=== PATIENT | male | born 1930 | race Caucasian/White ===

== ENCOUNTER 2017-07-18 14:26 | Inpatient (IN) | payer MEDICARE ==
[~2017-07-18] VITALS: Ht 170.2 cm; Wt 76.1 kg
[2017-07-18] VITALS (10 sets, daily range): BP systolic 100–157; BP diastolic 57–101; PULSE 79–95; RESP 16–24; TEMP 97.7; O2SAT 93–97
--- NOTE | 2017-07-18 14:42 | PD ---
HPI Chief Complaint: Respiratory Symptoms Time Seen by Provider: 14:39 Travel History International Travel<30 days: No Contact w/Intl Traveler<30days: No Traveled to known affect area: No History of Present Illness HPI Progressively worsening shortness of breath over the past 2-3 days. Shortness of breath is worsened by laying flat. Increasing lower extremity edema as well has been noted. 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 However the patient denies having any history of liver failure kidney failure or congestive heart failure Patient has a history of lung CA with known pneumonectomy 2 on right lung No known drug allergies History of PVCs, history of COPD, history of cholecystectomy, history of hiatal hernia, and history of anxiety. PFSH Past Medical History Respiratory: Yes Social History Tobacco Use: No Allergies-Medications (Allergen,Severity, Reaction): Coded Allergies: No Known Allergies (Unverified , 07/18/17) Reported Meds & Prescriptions Reported Meds & Active Scripts Active Reported [inhaler] Prednisone 10 Mg Tab 10 Mg PO DAILY [water pill] [breathing tx] 1 Inh QID PRN Review of Systems General / Constitutional: No: Fever Eyes: No: Visual changes HENT: No: Headaches Cardiovascular: No: Chest Pain or Discomfort Respiratory: Positive: Shortness of Breath Gastrointestinal: No: Abdominal Pain Genitourinary: No: Dysuria Musculoskeletal: No: Pain Skin: No Rash Neurologic: No: Weakness Psychiatric: No: Depression Endocrine: No: Polydipsia Hematologic/Lymphatic: No: Easy Bruising Physical Exam Narrative GENERAL: SKIN: Warm and dry. HEAD: Atraumatic. Normocephalic. EYES: Pupils equal and round. No scleral icterus. No injection or drainage. ENT: No nasal bleeding or discharge. Mucous membranes pink and moist. NECK: Trachea midline. No JVD. CARDIOVASCULAR: Regular rate and rhythm. RESPIRATORY: No accessory muscle use. Clear to auscultation. Breath sounds equal bilaterally. GASTROINTESTINAL: Abdomen soft, non-tender, nondistended. MUSCULOSKELETAL: Extremities without clubbing, cyanosis, or edema. No obvious deformities. NEUROLOGICAL: Awake and alert. No obvious cranial nerve deficits. Motor grossly within normal limits. Five out of 5 muscle strength in the arms and legs. Normal speech. PSYCHIATRIC: Appropriate mood and affect; insight and judgment normal. Data Data Last Documented VS Orders Orders Complete Blood Count With Diff (07/18/17 14:40) Comprehensive Metabolic Panel (07/18/17 14:40) B-Type Natriuretic Peptide (07/18/17 14:40) D-Dimer (07/18/17 14:40) Act Partial Throm Time (Ptt) (07/18/17 14:40) Prothrombin Time / Inr (Pt) (07/18/17 14:40) Ckmb (Isoenzyme) Profile (07/18/17 14:40) Troponin I (07/18/17 14:40) Influenzae A/B Antigen (07/18/17 14:40) Blood Culture (07/18/17 14:40) Iv Access Insert/Monitor (07/18/17 14:40) Electrocardiogram (07/18/17 14:40) Ecg Monitoring (07/18/17 14:40) Oximetry (07/18/17 14:40) Oxygen Administration (07/18/17 14:40) Chest, Single Ap (07/18/17 14:40) Sodium Chloride 0.9% Flush (Ns Flush) (07/18/17 14:45) Methylprednisolone So Succ Inj (Solumedr (07/18/17 14:45) Albuterol Neb (Albuterol Neb) (07/18/17 14:45) Nitroglycerin 2% Oint (Nitroglycerin 2% (07/18/17 15:15) Furosemide Inj (Lasix Inj) (07/18/17 15:15) Oseltamivir (Tamiflu) (07/18/17 15:45) Admit Order (Ed Use Only) (07/18/17 15:56) Labs Laboratory Tests Test 07/18/17 15:00 White Blood Count 7.1 TH/MM3 Red Blood Count 5.08 MIL/MM3 Hemoglobin 14.1 GM/DL Hematocrit 44.3 % Mean Corpuscular Volume 87.1 FL Mean Corpuscular Hemoglobin 27.7 PG Mean Corpuscular Hemoglobin Concent 31.8 % Red Cell Distribution Width 15.8 % Platelet Count 199 TH/MM3 Mean Platelet Volume 8.2 FL Neutrophils (%) (Auto) 89.1 % Lymphocytes (%) (Auto) 7.0 % Monocytes (%) (Auto) 3.4 % Eosinophils (%) (Auto) 0.3 % Basophils (%) (Auto) 0.2 % Neutrophils # (Auto) 6.4 TH/MM3 Lymphocytes # (Auto) 0.5 TH/MM3 Monocytes # (Auto) 0.2 TH/MM3 Eosinophils # (Auto) 0.0 TH/MM3 Basophils # (Auto) 0.0 TH/MM3 CBC Comment DIFF FINAL Differential Comment Prothrombin Time 11.4 SEC Prothromb Time International Ratio 1.1 RATIO Activated Partial Thromboplast Time 25.3 SEC D-Dimer Quantitative (PE/DVT) 1.24 MG/L FEU Blood Urea Nitrogen 30 MG/DL Creatinine 1.10 MG/DL Random Glucose 97 MG/DL Total Protein 6.8 GM/DL Albumin 3.3 GM/DL Calcium Level 8.9 MG/DL Alkaline Phosphatase 93 U/L Aspartate Amino Transf (AST/SGOT) 52 U/L Alanine Aminotransferase (ALT/SGPT) 93 U/L Total Bilirubin 0.7 MG/DL Sodium Level 138 MEQ/L Potassium Level 4.4 MEQ/L Chloride Level 103 MEQ/L Carbon Dioxide Level 26.8 MEQ/L Anion Gap 8 MEQ/L Estimat Glomerular Filtration Rate 64 ML/MIN Total Creatine Kinase 57 U/L Troponin I 0.07 NG/ML B-Type Natriuretic Peptide 2023 PG/ML MDM Medical Decision Making Medical Screen Exam Complete: Yes Emergency Medical Condition: Yes Medical Record Reviewed: Yes Interpretation(s) EKG shows normal sinus rhythm, 92 bpm, PVCs, nonspecific ST-T wave changes, no specific STEMI pattern noted Differential Diagnosis COPD exacerbation versus pneumonia versus CHF versus pulmonary edema versus pleural effusion Narrative Course CBC shows no leukocytosis, no anemia, normal platelet count. Chemistry profile shows normal electrolytes, mildly elevated AST of 52 ALT of 93 , normal bilirubin normal alk phos. Flu positive Chest x-ray read by radiologist as mild congestive heart failure. Diagnosis Primary Impression: Dyspnea Qualified Codes: R06.01 - Orthopnea Additional Impressions: Pulmonary edema Influenza Admitting Information Admitting Physician Requests: Observation Scripts [Albuterol-Ipratropium Neb] 1 AMPULE NEBU No Conflict Check 1 AMPULE NEB Q2HR NEB Y for SOB/WHEEZING, #90 Prov: Shawanda Dee MD 07/19/17 Furosemide (Lasix) 20 Mg Tab 20 MG PO BID for heart, #60 TAB 0 Refills Prov: Shawanda Dee MD 07/19/[address] (Aspirin EC) 325 Mg Tabdr 325 MG PO DAILY for heart, #31 TAB Prov: Shawanda Dee MD 07/19/17 Lisinopril (Lisinopril) 5 Mg Tab 2.5 MG PO DAILY for hf, #30 TAB Prov: Shawanda Dee MD 07/19/17 Carvedilol (Coreg) 3.125 Mg Tab 3.125 MG PO Q12HR for hf, #62 TAB Prov: Shawanda Dee MD 07/19/17 Oseltamivir (Tamiflu) 75 Mg Cap 75 MG PO BID for Infection, #8 CAP Prov: Shawanda Dee MD 07/19/17 Luis Stokes MD Jul 18, 2017 14:42
[2017-07-18] MEDS ORDERED: SODIUM CHLORIDE 0.9% FLUSH 10 ML FLUSH IVF PRN (14:45)
[2017-07-18] MEDS ORDERED: methylPREDNISolone SOD SUCC 125 MG/2 ML VIAL IV PUSH ONE (14:45)
[2017-07-18] MEDS: RESP: ALBUTEROL 2.5 MG/3 ML NEB (SCH) INH (14:49)
--- NOTE | 2017-07-18 15:02 | RADRPT ---
EXAM DATE/TIME: 07/18/2017 14:41 [facility] COMPARISON: No previous studies available for comparison. INDICATIONS : Short of breath MEDICAL HISTORY : None. SURGICAL HISTORY : None. ENCOUNTER: Initial ACUITY: 1 day PAIN SCORE: 0/10 LOCATION: Bilateral chest FINDINGS: There is elevation of the right hemidiaphragm. Minimal parenchymal changes left base. Cardiomegaly with mild interstitial edema. Postsurgical changes about the right hilum. No pneumothorax. The port ion of the bony skeleton visualized is unremarkable. CONCLUSION: Probable mild congestive failure. El Madison MD FACR on July 18, 2017 at 14:59 Board Certified Radiologist. This report was verified electronically.
[2017-07-18] MEDS ORDERED: FUROSEMIDE 40 MG/4 ML VIAL IV PUSH ONE (15:15)
[2017-07-18] MEDS ORDERED: NITROGLYCERIN 2% OINT 1 GM PACKET TOP ONE (15:15)
[2017-07-18 15:19] LABS: AUTOMATED NEUTROPHIL # 6.4 TH/MM3 (1.8-7.7); BASOPHIL % 0.2 % (0.0-2.0); EOSINOPHIL % 0.3 % (0.0-4.0); HEMATOCRIT 44.3 % (39.0-51.0); HEMOGLOBIN 14.1 GM/DL (13.0-17.0); LYMPHOCYTE # 0.5 TH/MM3 (1.0-4.8); MEAN CELL VOLUME 87.1 FL (80.0-100.0); MEAN CORPUSCULAR HEMOGLOBIN 27.7 PG (27.0-34.0); MEAN CORPUSCULAR HGB CONC 31.8 % (32.0-36.0); MEAN PLATELET VOLUME 8.2 FL (7.0-11.0); MONO % 3.4 % (0.0-8.0); MONOCYTE # 0.2 TH/MM3 (0-0.9); NEUT % 89.1 % (16.0-70.0); PLATELET COUNT 199 TH/MM3 (150-450); RED BLOOD COUNT 5.08 MIL/MM3 (4.50-5.90); RED CELL DISTRIBUTION WIDTH 15.8 % (11.6-17.2); WHITE BLOOD COUNT 7.1 TH/MM3 (4.0-11.0)
[2017-07-18] MEDS ORDERED: breathing tx (15:24)
[2017-07-18] MEDS ORDERED: inhaler (15:24)
[2017-07-18] MEDS ORDERED: PRED10 PO (15:24)
[2017-07-18] MEDS ORDERED: water pill (15:24)
[2017-07-18 15:25] LABS: CHLORIDE 103 MEQ/L (98-107); SODIUM (NA) 138 MEQ/L (136-145)
[2017-07-18 15:28] LABS: CALCIUM 8.9 MG/DL (8.5-10.1)
[2017-07-18 15:29] LABS: ALBUMIN 3.3 GM/DL (3.4-5.0); BICARBONATE 26.8 MEQ/L (21.0-32.0); BLOOD UREA NITROGEN 30 MG/DL (7-18); GLUCOSE,RANDOM 97 MG/DL (74-106)
[2017-07-18 15:31] LABS: INTERNATIONAL NORMALIZED RATIO 1.1 RATIO; PROTHROMBIN TIME - PATIENT 11.4 SEC (9.8-11.6)
[2017-07-18 15:32] LABS: ALT (GPT) 93 U/L (12-78); AST (GOT) 52 U/L (15-37); GLOMERULAR FILTRATION RATE 64 ML/MIN (>89)
[2017-07-18 15:33] LABS: TOTAL BILIRUBIN ADULT 0.7 MG/DL (0.2-1.0); TOTAL PROTEIN 6.8 GM/DL (6.4-8.2)
[2017-07-18 15:35] LABS: ALKALINE PHOSPHATASE 93 U/L (45-117)
[2017-07-18 15:37] LABS: TROPONIN I 0.07 NG/ML (0.02-0.05)
[2017-07-18 15:42] LABS: D-DIMER 1.24 MG/L FEU (0.00-0.50)
[2017-07-18] MEDS ORDERED: OSELTAMIVIR PHOSPHATE 75 MG CAP PO ONE (15:45)
[2017-07-18] MEDS ORDERED: TEMAZEPAM 15 MG CAP PO PRN (16:15)
[2017-07-18] MEDS ORDERED: DOCUSATE SODIUM 100 MG CAP PO PRN (16:15)
[2017-07-18] MEDS ORDERED: MAGNESIUM HYDROXIDE SUSP 30 ML CUP PO PRN (16:15)
[2017-07-18] MEDS ORDERED: CALCIUM CARBONATE 500 MG CHEWABLE TAB CHEW PRN (16:15)
[2017-07-18] MEDS ORDERED: ONDANSETRON HCL 4 MG/2 ML VIAL IV PUSH PRN (16:15)
[2017-07-18] MEDS ORDERED: RESP: ALBUTEROL 2.5 MG/IPRATROPIUM 0.5 MG NEB (PRN) NEB (16:15)
[2017-07-18] MEDS ORDERED: SODIUM CHLORIDE 0.9% FLUSH 10 ML FLUSH IV FLUSH PRN (16:15)
[2017-07-18] MEDS ORDERED: ACETAMINOPHEN 325 MG TAB PO PRN (16:15)
[2017-07-18] MEDS ORDERED: PILL SPLITTER OTHER PRN (16:45)
[2017-07-18] MEDS: LISINOPRIL 5 MG TAB PO SCH (16:55)
[2017-07-18] MEDS: ASPIRIN EC 325 MG TABEC PO SCH (16:55)
--- NOTE | 2017-07-18 17:07 | HHI.HP ---
[facility] Unknown Admission Diagnosis INFLUENZA, PULMONARY EDEMA, PVC'S Diagnoses: Chief Complaint: Shortness of breath Travel History International Travel<30 Days: No Contact w/Intl Traveler <30 Da: No Traveled to Known Affected Are: No History of Present Illness This patient is a very pleasant 87-year-old gentleman with a history of COPD. He endorses 2-3 days of increased dyspnea on exertion and shortness of breath. Recently he was prescribed oxygen and his primary doctor locally if he has a history of COPD. Patient does not have a history of cardiac disease. He has never had a cardiac event and has come in complaining of orthopnea and lower extremity edema. Take a water pill occasionally, but reports that this is just as needed for increased edema. Here he is given Lasix and put out 600 mL. His BNP is elevated his cardiac enzymes are slightly elevated and he does have the flu. Patient been admitted to the hospital due to signs and symptoms of congestive heart failure. I did review his EKG and there are no changes consistent with ST elevation OK or ischemia. He is in normal sinus rhythm at this time Review of Systems Constitutional: DENIES: Diaphoretic episodes, Fatigue, Fever, Weight gain, Weight loss, Chills, Dizziness, Change in appetite, Night Sweats Endocrine: DENIES: Heat/cold intolerance, Polydipsia, Polyuria, Polyphagia Eyes: DENIES: Blurred vision, Diplopia, Eye inflammation, Eye pain, Vision loss , Photosensitivity, Double Vision Ears, nose, mouth, throat: DENIES: Tinnitus, Hearing loss, Vertigo, Nasal discharge, Oral lesions, Throat pain, Hoarseness, Ear Pain, Running Nose, Epistaxis, Sinus Pain, Toothache, Odynophagia Respiratory: DENIES: Apneas, Cough, Snoring, Wheezing, Hemoptysis, Sputum production, Shortness of breath Cardiovascular: COMPLAINS OF: Dyspnea on Exertion, Lower Extremity Edema, Orthopnea, DENIES: Chest pain, Palpitations, Syncope, PND, Claudication Genitourinary: DENIES: Sexual dysfunction, Urinary frequency, Urinary incontinence, Urgency, Hematuria, Dysuria, Nocturia, Penile Discharge, Testicular Pain, Testicular Swelling Musculoskeletal: DENIES: Joint pain, Muscle aches, Stiffness, Joint Swelling, Back pain, Neck pain Integumentary: DENIES: Abnormal pigmentation, Nail changes, Pruritus, Rash Hematologic/lymphatic: DENIES: Bruising, Lymphadenopathy Immunologic/allergic: DENIES: Eczema, Urticaria Neurologic: DENIES: Abnormal gait, Headache, Localized weakness, Paresthesias, Seizures, Speech Problems, Tremor, Poor Balance Psychiatric: DENIES: Anxiety, Confusion, Mood changes, Depression, Hallucinations, Agitation, Suicidal Ideation, Homicidal Ideation, Delusions Past Family Social History Past Medical History COPD Lung cancer with lung surgeries 2 Edema Past Surgical History Lung surgery 2 Cholecystectomy Hiatal hernia Reported Medications Reviewed in the EMR, nothing new, take the water pill occasionally as needed for ankle edema Allergies: Coded Allergies: No Known Allergies (Unverified , 07/18/17) Active Ordered Medications Reviewed in the EMR Family History Family history is unknown per patient Social History No current tobacco alcohol dependency, is visiting from [place] with his family Physical Exam Vital Signs Vital Signs Date Time Temp Pulse Resp B/P (MAP) Pulse Ox O2 Delivery O2 Flow Rate FiO2 07/18/17 16:47 95 20 149/82 (104) 95 Nasal Cannula 2.00 07/18/17 15:45 93 20 157/87 (110) 93 Nasal Cannula 2.00 07/18/17 14:52 96 Nasal Cannula 2.00 07/18/17 14:52 96 Nasal Cannula 2.00 07/18/17 14:52 Nasal Cannula 07/18/17 14:49 95 Nasal Cannula 2.00 07/18/17 14:28 97.7 93 20 149/101 (117) 95 Physical Exam GENERAL: This is a well-nourished, well-developed patient, in no apparent distress. SKIN: No rashes, ecchymoses or lesions. Cool and dry. HEAD: Atraumatic. Normocephalic. No temporal or scalp tenderness. EYES: Pupils equal round and reactive. Extraocular motions intact. No scleral icterus. No injection or drainage. ENT: Nose without bleeding, purulent drainage or septal hematoma. Throat without erythema, tonsillar hypertrophy or exudate. Uvula midline. Airway patent. NECK: Trachea midline. No JVD or lymphadenopathy. Supple, nontender, no meningeal signs. CARDIOVASCULAR: Regular rate and rhythm without murmurs, gallops, or rubs. RESPIRATORY: Decreased airflow bilaterally with crackles in the bases GASTROINTESTINAL: Abdomen soft, non-tender, nondistended. No hepato-splenomegaly , or palpable masses. No guarding. MUSCULOSKELETAL: Extremities without clubbing, cyanosis, or edema. No joint tenderness, effusion, but there is +3 edema bilateral ankles. No calf tenderness. Negative Homans sign bilaterally. NEUROLOGICAL: Awake and alert. Cranial nerves II through XII intact. Motor and sensory grossly within normal limits. Five out of 5 muscle strength in all muscle groups. Normal speech. Laboratory Laboratory Tests Test 07/18/17 15:00 White Blood Count 7.1 Red Blood Count 5.08 Hemoglobin 14.1 Hematocrit 44.3 Mean Corpuscular Volume 87.1 Mean Corpuscular Hemoglobin 27.7 Mean Corpuscular Hemoglobin Concent 31.8 Red Cell Distribution Width 15.8 Platelet Count 199 Mean Platelet Volume 8.2 Neutrophils (%) (Auto) 89.1 Lymphocytes (%) (Auto) 7.0 Monocytes (%) (Auto) 3.4 Eosinophils (%) (Auto) 0.3 Basophils (%) (Auto) 0.2 Neutrophils # (Auto) 6.4 Lymphocytes # (Auto) 0.5 Monocytes # (Auto) 0.2 Eosinophils # (Auto) 0.0 Basophils # (Auto) 0.0 CBC Comment DIFF FINAL Differential Comment Prothrombin Time 11.4 Prothromb Time International Ratio 1.1 Activated Partial Thromboplast Time 25.3 D-Dimer Quantitative (PE/DVT) 1.24 Blood Urea Nitrogen 30 Creatinine 1.10 Random Glucose 97 Total Protein 6.8 Albumin 3.3 Calcium Level 8.9 Alkaline Phosphatase 93 Aspartate Amino Transf (AST/SGOT) 52 Alanine Aminotransferase (ALT/SGPT) 93 Total Bilirubin 0.7 Sodium Level 138 Potassium Level 4.4 Chloride Level 103 Carbon Dioxide Level 26.8 Anion Gap 8 Estimat Glomerular Filtration Rate 64 Total Creatine Kinase 57 Troponin I 0.07 B-Type Natriuretic Peptide 2022 Date/Time Source Procedure Growth Status 07/18/17 15:00 Blood Peripheral Aerobic Blood Culture Pending Received 07/18/17 15:00 Blood Peripheral Anaerobic Blood Culture Pending Received 07/18/17 14:55 Nasal Washing Influenza Types A,B Antigen (MUSA) - Final Positive For Flu A Antigen Complete Result Diagram: 07/18/17 1500 07/18/17 1500 Imaging Last Impressions Chest X-Ray 07/18/17 1440 Signed Impressions: Service Date/Time: Tuesday, July 18, 2017 14:41 - CONCLUSION: Probable mild congestive failure. El Madison MD FACR Karely VTE Risk Assessment Karely VTE Risk Assessment: No/Low Risk (score <= 1) Caprini Risk Assessment Model Point Value = 1 Point Value = 2 Point Value = 3 Point Value = 5 Age 41-60 Minor surgery BMI > 25 kg/m2 Swollen legs Varicose veins or History of unexplained or recurrent spontaneous Oral contraceptives or hormone replacement Sepsis (< 1 month) Serious lung disease, including pneumonia (< 1 month) Abnormal pulmonary function Acute myocardial infarction Congestive heart failure (< 1 month) History of inflammatory bowel disease Medical patient at bed rest Age 61-74 Arthroscopic surgery Major open surgery (> 45 min) Laparoscopic surgery (> 45 min) Malignancy Confined to bed (> 72 hours) Immobilizing plaster cast Central venous access Age >= 75 History of VTE Family history of VTE Factor V Leiden Prothrombin [id number] Lupus anticoagulant Anticardiolipin antibodies Elevated serum homocysteine Heparin-induced thrombocytopenia Other congenital or acquired thrombophilia Stroke (< 1 month) Elective arthroplasty Hip, pelvis, or leg fracture Acute spinal cord injury (< 1 month) Prophylaxis Regimen Total Risk Factor Score Risk Level Prophylaxis Regimen 0-1 Low Early ambulation 2 Moderate Order ONE of the following: *Sequential Compression Device (SCD) *Heparin 5000 units SQ BID 3-4 Higher Order ONE of the following medications: *Heparin 5000 units SQ TID *Enoxaparin/Lovenox 40 mg SQ daily (WT < 150 kg, CrCl > 30 mL/min) *Enoxaparin/Lovenox 30 mg SQ daily (WT < 150 kg, CrCl > 10-29 mL/min) *Enoxaparin/Lovenox 30 mg SQ BID (WT < 150 kg, CrCl > 30 mL/min) AND/OR *Sequential Compression Device (SCD) 5 or more Highest Order ONE of the following medications: *Heparin 5000 units SQ TID (Preferred with Epidurals) *Enoxaparin/Lovenox 40 mg SQ daily (WT < 150 kg, CrCl > 30 mL/min) *Enoxaparin/Lovenox 30 mg SQ daily (WT < 150 kg, CrCl > 10-29 mL/min) *Enoxaparin/Lovenox 30 mg SQ BID (WT < 150 kg, CrCl > 30 mL/min) AND *Sequential Compression Device (SCD) Assessment and Plan Problem List: (1) CHF (congestive heart failure) ICD Code: I50.9 - Heart failure, unspecified Plan: New onset per patient, echocardiogram pending and cardiac enzymes will be trended Continue with telemetry Continue with medical management Elevated LFTs likely from passive congestion (2) Influenza A ICD Code: J10.1 - Influenza due to other identified influenza virus with other respiratory manifestations Plan: Continue Tamiflu and supportive care (3) Elevated troponin ICD Code: R74.8 - Abnormal levels of other serum enzymes Plan: Likely due to congestive heart failure exacerbation, workup in progress Cardiology to see (4) COPD (chronic obstructive pulmonary disease) ICD Code: J44.9 - Chronic obstructive pulmonary disease, unspecified Plan: Continue with bronchodilators scheduled and as needed (5) D-dimer, elevated ICD Code: R79.89 - Other specified abnormal findings of blood chemistry Plan: Patient will need further evaluation for PE Given that the patient will likely also need probably a stress test evaluated by CT Physician Certification 2 Midnight Certification Type: Admission for Inpatient Services Order for Inpatient Services The services are ordered in accordance with Medicare regulations or non- Medicare payer requirements, as applicable. In the case of services not specified as inpatient-only, they are appropriately provided as inpatient services in accordance with the 2-midnight benchmark. Estimated LOS (days): 3 3 days is the estimated time the patient will need to remain in the hospital, assuming treatment plan goals are met and no additional complications. Post-Hospital Plan: Shawanda Georges MD Jul 18, 2017 17:07
[2017-07-18] MEDS ORDERED: NITROGLYCERIN 2% OINT 1 GM PACKET TOPICAL SCH (18:00)
[2017-07-18] MEDS: ENOXAPARIN SODIUM 80 MG/0.8 ML SYRINGE SQ SCH (18:44)
[2017-07-18] MEDS: RESP: ALBUTEROL 2.5 MG/IPRATROPIUM 0.5 MG NEB (SCH) NEB (19:07)
[2017-07-18] MEDS: OSELTAMIVIR PHOSPHATE 75 MG CAP PO SCH (21:00)
[2017-07-18] MEDS: POTASSIUM CHLORIDE 10 MEQ CONTROLLED RELEASE TAB PO SCH (21:39)
[2017-07-18] MEDS: CARVEDILOL 3.125 MG TAB PO SCH (21:39)
[2017-07-18] MEDS: SODIUM CHLORIDE 0.9% FLUSH 10 ML FLUSH IV FLUSH SCH (21:39)
[2017-07-19] VITALS (17 sets, daily range): BP systolic 104–139; BP diastolic 58–87; PULSE 59–86; RESP 18–20; TEMP 96.5–97.8; O2SAT 95–100
[2017-07-19] MEDS ORDERED: IOHEXOL 350 MG/ML 10 ML VIAL (for RAD DIAG) IVCONTRAST ONE (00:16)
--- NOTE | 2017-07-19 00:32 | RADRPT ---
EXAM DATE/TIME: 07/19/2017 00:04 [facility] COMPARISON: CHEST SINGLE AP, July 18, 2017, 14:41. INDICATIONS : Shortness of breath. IV CONTRAST: 75 cc Omnipaque 350 (iohexol) IV RADIATION DOSE: 18.47 CTDIvol (mGy) MEDICAL HISTORY : Cardiovascular disease. Chronic obstructive pulmonary disease. SURGICAL HISTORY : Lobectomy. Cholecystectomy.Hiatal hernia repair. ENCOUNTER: Initial ACUITY: 3 days PAIN SCALE: 6/10 LOCATION: chest TECHNIQUE: Volumetric scanning of the chest was performed using a pulmonary embolism protocol MIP images were re constructed. Using automated exposure control and adjustment of the mA and/or kV according to patien t size, radiation dose was kept as low as reasonably achievable to obtain optimal diagnostic quality images. DICOM format image data is available electronically for review and comparison. Follow-up recommendations for detected pulmonary nodules are based at a minimum on nodule size and pa tient risk factors according to Fleischner Society Guidelines. FINDINGS: PULMONARY ARTERIES: There is a solitary filling defect in a subsegmental artery supplying the anterior right upper lung. There is thickening about the segmental artery and there are multiple areas of lobular opacity in th e anterior right upper lobe. This portion of the lung is presumably at the site of prior lobectomy. The remainder of the pulmonary arteries including the main, left, and right pulmonary arteries are p atent without filling defects. LUNGS: Multiple lobular irregular margin nodules are present in the right upper lung and there is consolidat jose thickening in the anterior right apex. Patient has history of lobectomy and these opacities are located adjacent to the presumed site of lobectomy. These could represent metastatic nodules. PLEURAE: Moderate-sized left pleural effusion measuring 4.3 cm and small right pleural effusion measuring 1.5 cm. MEDIASTINUM: There is good visualization of the great vessels of the middle mediastinum. No evidence of mediastin al or hilar adenopathy/mass. CONCLUSION: 1. 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 There is an abnormal appearance to the right upper lobe with multiple lobular opacities which appear to follow a vascular distribution. Th ere is also a solitary filling defect in a subsegmental artery supplying this region. Recommend emigdio elation with prior history to confirm that this is in the portion of the lung and has had lobectomy a nd for possible radiation. If there is a history of lung cancer, metastatic disease could cause this appearance. There are no prior chest imaging studies at this institution to evaluate whether these densities are new or not. 2. No filling defects seen in the remainder of the pulmonary arteries. 3. Bilateral pleural effusions, left greater than right. Parag Pierre MD on July 19, 2017 at 0:22 Board Certified Radiologist. This report was verified electronically.
[2017-07-19] MEDS: FUROSEMIDE 40 MG/4 ML VIAL IVP SCH ×2 (00:46→09:00)
[2017-07-19] MEDS: NITROGLYCERIN 2% OINT 1 GM PACKET TOPICAL SCH ×3 (00:46→12:10)
[2017-07-19 04:06] LABS: CHLORIDE 100 MEQ/L (98-107); SODIUM (NA) 139 MEQ/L (136-145)
[2017-07-19 04:09] LABS: CALCIUM 8.6 MG/DL (8.5-10.1)
[2017-07-19 04:10] LABS: BICARBONATE 31.5 MEQ/L (21.0-32.0); BLOOD UREA NITROGEN 29 MG/DL (7-18); GLUCOSE,RANDOM 123 MG/DL (74-106)
[2017-07-19 04:13] LABS: ALT (GPT) 99 U/L (12-78); AST (GOT) 53 U/L (15-37); GLOMERULAR FILTRATION RATE 58 ML/MIN (>89)
[2017-07-19 04:14] LABS: TOTAL BILIRUBIN ADULT 0.6 MG/DL (0.2-1.0); TOTAL PROTEIN 6.3 GM/DL (6.4-8.2)
[2017-07-19 04:16] LABS: ALKALINE PHOSPHATASE 88 U/L (45-117)
[2017-07-19 04:18] LABS: TROPONIN I 0.04 NG/ML (0.02-0.05)
[2017-07-19] MEDS: ENOXAPARIN SODIUM 80 MG/0.8 ML SYRINGE SQ SCH (06:37)
[2017-07-19] MEDS: RESP: ALBUTEROL 2.5 MG/IPRATROPIUM 0.5 MG NEB (SCH) NEB ×2 (08:59→13:23)
[2017-07-19] MEDS: SODIUM CHLORIDE 0.9% FLUSH 10 ML FLUSH IV FLUSH SCH (09:00)
[2017-07-19] MEDS: ASPIRIN EC 325 MG TABEC PO SCH (09:00)
[2017-07-19] MEDS: POTASSIUM CHLORIDE 10 MEQ CONTROLLED RELEASE TAB PO SCH (09:00)
[2017-07-19] MEDS: OSELTAMIVIR PHOSPHATE 75 MG CAP PO SCH (09:01)
[2017-07-19] MEDS: LISINOPRIL 5 MG TAB PO SCH (09:01)
[2017-07-19] MEDS: CARVEDILOL 3.125 MG TAB PO SCH (09:23)
--- NOTE | 2017-07-19 10:11 | MB ---
cc: Boby Lagunas MD DATE OF CONSULT: 07/18/2017 HISTORY OF PRESENT ILLNESS: Mr. Baig is a very pleasant 87-year-old white male visiting his family from [place]. He has a previous history of COPD. He has had a several day history of dyspnea on exertion, PND, orthopnea and mild lower extremity edema. He was recently prescribed oxygen at night. He has no previous cardiac history. 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 He occasionally takes diuretics. He has been diagnosed with the flu. He is currently breathing better. He has not had any chest pain. PAST MEDICAL HISTORY: Positive for COPD, lung cancer treated surgically on two occasions. H/o cholecystectomy, hiatal hernia. No history of diabetes mellitus, dyslipidemia, coronary artery disease, or CVA. MEDICATIONS: The patient is on a diuretic. ALLERGIES: NONE. SOCIAL HISTORY: The patient does not smoke, but used to smoke until the . He does not drink alcohol. His family is present. FAMILY HISTORY: Negative for heart disease. REVIEW OF SYSTEMS: Otherwise negative. PHYSICAL EXAM: VITAL SIGNS: Blood pressure 139/90, pulse 92 and regular. HEENT: Negative. 2+ carotid upstrokes. No bruits. LUNGS: Decreased breath sounds, a few bibasilar crackles. HEART: Regular with no murmur, gallop or rub. ABDOMEN: Soft. No bruits. EXTREMITIES: With 1-2+ lower extremity edema, more prominent in the ankles, 1+ distal pulses. NEUROLOGIC: Exam is grossly nonfocal. EKG: Reviewed and showed normal sinus rhythm and no acute changes. LABORATORY DATA: Hemoglobin 14.1, potassium 4.4, creatinine 1.1, AST 52, ALT 93, troponin 0.07, CK 57. BNP 2022. DIAGNOSES: 1. Acute congestive heart failure. 2. Influenza A. 3. Mild troponin elevation. 4. Chronic obstructive pulmonary disease. DISPOSITION: Mr. Baig was diagnosed with acute congestive heart failure exacerbation. He will be diuresed with IV Lasix. We will closely monitor his renal function and electrolytes. His troponin is elevated and he will be transferred to the main hospital most likely tomorrow. We will obtain an echocardiogram to evaluate his left ventricular function. He will be treated for COPD and also influenza A. I will see him for followup in our office as necessary after discharge before he returns to [place]. This was discussed with the patient and his family. MD JOBY Adams/MELVIN/bernabe , 09:22 PM , 07:12 AM TADEO
[2017-07-19 11:10] LABS: CHOLESTEROL 183 MG/DL (120-200); TRIGLYCERIDES 58 MG/DL (42-150)
[2017-07-19 11:12] LABS: CHOLESTEROL/ HDL RATIO 3.32 RATIO; LDL CHOLESTEROL 116 MG/DL (0-99)
--- NOTE | 2017-07-19 12:01 | ECHRPT ---
Indication: Heart Failure CONCLUSIONS The left ventricular systolic function is severely reduced with an estimated ejection fraction less than 20%. Mildly dilated left ventricle. Wall thickness is normal. There is global left ventricular dysfunction. The left atrial size is yoqi-gr-lwiatzqrvm dilated. Mild thickening of the mitral valve leaflets. Gxbw-tj-tsbelgoq mitral valve regurgitation. Diffuse calcification of the aortic valve. Mild aortic valve regurgitation. There is mild to moderate tricuspid valve regurgitation. The estimated pulmonary arterial pressure is 51.5 mmHg. BP: 113 / 69 HR: 84 Rhythm: PVCs MEASUREMENTS (Male / Female) Normal Values Technical Quality:Good 2D ECHO LV Diastolic Diameter PLAX 5.8 cm 4.2 - 5.9 / 3.9 - 5.3 cm LV Systolic Diameter PLAX 5.4 cm IVS Diastolic Thickness 1.1 cm 0.6 - 1.0 / 0.6 - 0.9 cm LVPW Diastolic Thickness 1.1 cm 0.6 - 1.0 / 0.6 - 0.9 cm LV Relative Wall Thickness 0.4 RV Internal Dim ED PLAX 3.5 cm LVOT Diameter 2.0 cm LA Systolic Diameter LX 4.7 cm 3.0 - 4.0 / 2.7 - 3.8 cm LV Ejection Fraction MOD 4C 18.8 % LV Cardiac Index MOD 4C 1585.6 cm/minm LV Ejection Fraction 4C AL 19.1 % LV Cardiac Index 4C AL 1692.6 cm/minm M-MODE Aortic Root Diameter MM 3.3 cm LA Systolic Diameter MM 4.5 cm LA Ao Ratio MM 1.4 AV Cusp Separation MM 1.7 cm DOPPLER AV Peak Velocity 124.0 cm/s AV Peak Gradient 6.2 mmHg AI Peak Velocity 322.0 cm/s AI Peak Gradient 41.5 mmHg AI Pressure Half Time 612.5 ms LVOT Peak Velocity 80.9 cm/s LVOT Peak Gradient 2.6 mmHg AV Area Cont Eq pk 2.0 cm MV Area PHT 4.0 cm Mitral E Point Velocity 96.3 cm/s Mitral A Point Velocity 86.4 cm/s Mitral E to A Ratio 1.1 LV E' Lateral Velocity 6.2 cm/s Mitral E to LV E' Lateral Ratio 15.5 LV E' Septal Velocity 3.8 cm/s Mitral E to LV E' Septal Ratio 25.5 TR Peak Velocity 322.0 cm/s TR Peak Gradient 41.5 mmHg Right Atrial Pressure 10.0 mmHg Pulmonary Artery Systolic Pressu 51.5 mmHg Right Ventricular Systolic Press 51.5 mmHg PV Peak Velocity 76.0 cm/s PV Peak Gradient 2.3 mmHg FINDINGS LEFT VENTRICLE The left ventricular systolic function is severely reduced with an estimated ejection fraction less than 20%. Mildly dilated left ventricle. Wall thickness is normal. There is global left ventricular dysfunction. RIGHT VENTRICLE Normal right ventricular size and systolic function. LEFT ATRIUM The left atrial size is kvdp-tq-kshcviwqxp dilated. RIGHT ATRIUM The right atrial size is normal. ATRIAL SEPTUM Normal atrial septal thickness without atrial level shunting by limited color doppler interrogation. AORTA The aortic root and proximal ascending aorta are normal in size on limited imaging. MITRAL VALVE Mild thickening of the mitral valve leaflets. Cwxb-oa-icatgifp mitral valve regurgitation. AORTIC VALVE Trileaflet aortic valve. Diffuse calcification of the aortic valve. Mild aortic valve regurgitation. TRICUSPID VALVE Structurally normal tricuspid valve. There is mild to moderate tricuspid valve regurgitation. The estimated pulmonary arterial pressure is 51.5 mmHg. PULMONARY VALVE No pulmonary valve regurgitation or stenosis. VESSELS The inferior vena cava is normal in size. PERICARDIUM No pericardial effusion. Bassam Ackerman MD, FACC (Electronically Signed) Final Date:19 July 2017 12:00
--- NOTE | 2017-07-19 12:23 | HHI.FF ---
Face to Face Verification Diagnosis: (1) CHF (congestive heart failure) (2) Influenza A (3) COPD (chronic obstructive pulmonary disease) Physical Therapy Order: Evaluate and Treat Occupational Therapy Order: Evaluate and Treat Home Health Nursing Order: Medical education Signs/symptoms of disease process CHF education Oxygen administration education I have seen patient Luis Baig on 07/19/17. My clinical findings support the need for the requested home health care services because: Patient has SOB I certify that my clinical findings support that this patient is homebound because: Hx COPD- exertion dyspnea/weakness Unsteady gait/balance Poor cardiac reserve Shawanda Dee MD Jul 19, 2017 12:23
[2017-07-19] MEDS ORDERED: LISI-519 PO (12:26)
[2017-07-19] MEDS ORDERED: OSEL75 PO (12:26)
[2017-07-19] MEDS ORDERED: ASPI325T33 PO (12:26)
[2017-07-19] MEDS ORDERED: FURO1TAB62 PO (12:26)
[2017-07-19] MEDS ORDERED: CARV3.125 PO (12:26)
--- NOTE | 2017-07-19 12:28 | HHI.DS ---
Discharge Summary Admission Date Jul 18, 2017 at 17:07 Discharge Date: Jul 19, 2017 Admitting Diagnosis INFLUENZA, PULMONARY EDEMA, PVC'S (1) CHF (congestive heart failure) ICD Code: I50.9 - Heart failure, unspecified (2) Influenza A ICD Code: J10.1 - Influenza due to other identified influenza virus with other respiratory manifestations (3) Elevated troponin ICD Code: R74.8 - Abnormal levels of other serum enzymes (4) COPD (chronic obstructive pulmonary disease) ICD Code: J44.9 - Chronic obstructive pulmonary disease, unspecified (5) D-dimer, elevated ICD Code: R79.89 - Other specified abnormal findings of blood chemistry Procedures none, ptn refuses Brief History - From Admission This patient is a very pleasant 87-year-old gentleman with a history of COPD. He endorses 2-3 days of increased dyspnea on exertion and shortness of breath. Recently he was prescribed oxygen and his primary doctor locally if he has a history of COPD. Patient does not have a history of cardiac disease. He has never had a cardiac event and has come in complaining of orthopnea and lower extremity edema. Take a water pill occasionally, but reports that this is just as needed for increased edema. Here he is given Lasix and put out 600 mL. His BNP is elevated his cardiac enzymes are slightly elevated and he does have the flu. Patient been admitted to the hospital due to signs and symptoms of congestive heart failure. I did review his EKG and there are no changes consistent with ST elevation SD or ischemia. He is in normal sinus rhythm at this time CBC/BMP: 07/18/17 1500 07/19/17 0340 Significant Findings Laboratory Tests Test 07/18/17 15:00 07/18/17 21:36 07/19/17 03:40 Mean Corpuscular Hemoglobin Concent 31.8 % (32.0-36.0) Neutrophils (%) (Auto) 89.1 % (16.0-70.0) Lymphocytes (%) (Auto) 7.0 % (9.0-44.0) Lymphocytes # (Auto) 0.5 TH/MM3 (1.0-4.8) D-Dimer Quantitative (PE/DVT) 1.24 MG/L FEU (0.00-0.50) Blood Urea Nitrogen 30 MG/DL (7-18) 29 MG/DL (7-18) Albumin 3.3 GM/DL (3.4-5.0) 3.0 GM/DL (3.4-5.0) Aspartate Amino Transf (AST/SGOT) 52 U/L (15-37) 53 U/L (15-37) Alanine Aminotransferase (ALT/SGPT) 93 U/L (12-78) 99 U/L (12-78) Estimat Glomerular Filtration Rate 64 ML/MIN (>89) 58 ML/MIN (>89) Troponin I 0.07 NG/ML (0.02-0.05) B-Type Natriuretic Peptide 2023 PG/ML (0-100) Random Glucose 123 MG/DL (74-106) Total Protein 6.3 GM/DL (6.4-8.2) LDL Cholesterol 116 MG/DL (0-99) Imaging Last Impressions CT Angiography 07/19/17 0000 Signed Impressions: Service Date/Time: Wednesday, July 19, 2017 00:04 - CONCLUSION: 1. 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 There is an abnormal appearance to the right upper lobe with multiple lobular opacities which appear to follow a vascular distribution. There is also a solitary filling defect in a subsegmental artery supplying this region. Recommend correlation with prior history to confirm that this is in the portion of the lung and has had lobectomy and for possible radiation. If there is a history of lung cancer, metastatic disease could cause this appearance. There are no prior chest imaging studies at this institution to evaluate whether these densities are new or not. 2. No filling defects seen in the remainder of the pulmonary arteries. 3. Bilateral pleural effusions, left greater than right. Parag Pierre MD Chest X-Ray 07/18/17 1440 Signed Impressions: Service Date/Time: Tuesday, July 18, 2017 14:41 - CONCLUSION: Probable mild congestive failure. El Madison MD FACR PE at Discharge GENERAL: This is a well-nourished, well-developed patient, in no apparent distress. CARDIOVASCULAR: Regular rate and rhythm without murmurs, gallops, or rubs. RESPIRATORY: Clear to auscultation. Breath sounds equal bilaterally. No wheezes , rales, or rhonchi. GASTROINTESTINAL: Abdomen soft, non-tender, nondistended. Normal active bowel sounds MUSCULOSKELETAL: Extremities without clubbing, cyanosis, or edema. NEURO: Alert & Oriented x4 to person, place, time, situation. Moves all ext x4 Pt update on day of discharge Doing well today. Post diuresis Cardiology consult appreciated. Hospital Course Patient seen and evaluated today in follow-up for congestive heart failure and influenza. This is new onset. Patient was recommended for further cardiac evaluation by the patient and his family have declined this and would like to continue with medical management. He has done well with diuresis and adjusting his medications. He is tolerating his Tamiflu without difficulty. Over 4 L of fluid have been diuresed Cardiac enzymes have improved and he is seen by cardiology I did speak with the family at length regarding possible further evaluations and they would like to continue with conservative measures Pt Condition on Discharge: Fair Discharge Disposition: Disch w/ Home Health Serv Discharge Time: <= 30 minutes Discharge Instructions DIET: Follow Instructions for: Heart Healthy Diet Activities you can perform: Regular-No Restrictions Follow up Referrals: Cardiology - 1 Week with Boby Lagunas MD New Medications: Furosemide (Lasix) 20 Mg Tab 20 MG PO BID for heart, #60 TAB [address] (Aspirin EC) 325 Mg Tabdr 325 MG PO DAILY for heart, #31 TAB Carvedilol (Coreg) 3.125 Mg Tab 3.125 MG PO Q12HR for hf, #62 TAB Lisinopril (Lisinopril) 5 Mg Tab 2.5 MG PO DAILY for hf, #30 TAB Oseltamivir (Tamiflu) 75 Mg Cap 75 MG PO BID for Infection, #8 CAP Continued Medications: Prednisone (Prednisone) 10 Mg Tab 10 MG PO DAILY, TAB 0 Refills [breathing tx] () 1 INH QID PRN for SHORTNESS OF BREATH [inhaler] () [water pill] () Shawanda Dee MD Jul 19, 2017 12:28
[2017-07-19] MEDS ORDERED: Albuterol-Ipratropium Neb NEB (13:58)
--- NOTE | 2017-07-19 16:01 | EKG ---
Date Performed: 07/18/2017 Time Performed: 15:14:10 PTAGE: 87 years EKG: Sinus rhythm WITH FREQUENT VENTRICULAR PREMATURE COMPLEXES NONSPECIFIC T-WAVE ABNORMALITY ABNORMAL ECG NO PREVIOUS TRACING DOCTOR: Kory Alonso Interpretating Date/Time 07/19/2017 15:59:49
== END 2017-07-19 14:30 | disposition home health service (06) | DRG 195 ==
LOC: PHED 14:26 → PHEDA 15:57 → OBSVTOIN 17:07 → PHEDH 22:44 → PH3B 07-19 10:50
PROVIDERS: ADMIT Hospitalist; ATTEND Hospitalist
DX: J10.1 Influenza due to other identified influenza virus with other respiratory manifestations (principal); I50.9 Heart failure, unspecified; Z99.81 Dependence on supplemental oxygen; J44.9 Chronic obstructive pulmonary disease, unspecified; Z85.118 Personal history of other malignant neoplasm of bronchus and lung; Z87.891 Personal history of nicotine dependence
CPT/HCPCS: 71045; 71275; 80053; 80061; 82550; 83880; 84484; 85025; 85379; 85610; 85730; 87040; 87804; 93005; 93306; 94640; 94664; 96374; 96375; J1650; J1940; J2930; J7613; Q9967